=== PATIENT | female | born 1995 | race American Indian/Alaskan Native ===

== ENCOUNTER 2017-01-28 20:59 | Emergency (ER) | payer SELFPAY ==
[2017-01-28 23:29] VITALS: BP 157/115
--- NOTE | 2017-01-30 01:46 | ED Elopement Review ---
ED Pt Elopement review - Call Back decision Pt Call Back Decision: No action required
== END 2017-01-29 00:58 | disposition left against medical advice (07) ==
LOC: ED 20:59
DX: O20.9 Hemorrhage in early pregnancy, unspecified (principal); Z3A.09 9 weeks gestation of pregnancy; Z53.21 Procedure and treatment not carried out due to patient leaving prior to being seen by health care provider

== ENCOUNTER 2017-02-08 08:41 | Emergency (ER) | payer BC ==
[2017-02-08] MEDS ORDERED: NORMODYNE ONE (09:36)
[2017-02-08] MEDS ORDERED: NORMODYNE PO ONE (09:56)
[2017-02-08 10:16] LABS: Basophils % (Auto) 0.9 % (0.0-1.8); Eosinophils % (Auto) 1.3 % (0.0-4.3); Hematocrit 32.4 % (30.3-42.9); Mean Corpuscular HGB Conc 31 % (30-34); Mean Corpuscular Volume 59 fl (79-97); Platelet Count 340 K/mm3 (140-440); Red Blood Count 5.48 M/mm3 (3.65-5.03); Red Cell Distribution Width 17.9 % (13.2-15.2); White Blood Count 11.9 K/mm3 (4.5-11.0)
[2017-02-08 10:17] LABS: Mean Corpuscular Hemoglobin 18 pg (28-32)
[2017-02-08 10:40] LABS: Alanine Aminotransferase 12 units/L (7-56); Albumin 4.1 g/dL (3.9-5); Albumin/Globulin Ratio 1.3 %; Alkaline Phosphatase 59 units/L (35-129); Anion Gap 14 mmol/L; Bilirubin,Total 0.7 mg/dL (0.1-1.2); Blood Urea Nitrogen 11 mg/dL (7-17); Carbon Dioxide 25 mmol/L (22-30); Chloride 102.3 mmol/L (98-107); Glucose 176 mg/dL (65-100); Lipase 21 units/L (13-60); Potassium 4.6 mmol/L (3.6-5.0); Sodium 137 mmol/L (137-145); Total Protein 7.3 g/dL (6.3-8.2)
[2017-02-08 12:47] LABS: Bilirubin,Urine NEG (Negative); Blood,Urine NEG (Negative); Ketones,Urine NEG (Negative); Leukocyte Esterase,Urine NEG (Negative); Mucus,Urine FEW /HPF; Nitrite,Urine NEG (Negative); Protein,Urine <15 mg/dL mg/dL (Negative); Urobilinogen,Urine < 2.0 mg/dL (<2.0); WBC,Urine < 1.0 /HPF (0.0-6.0)
--- NOTE | 2017-02-08 13:06 | Emergency Department Report ---
HPI - General Chief Complaint: Abdominal Pain Time Seen by Provider: 02/08/17 12:48 - HPI HPI: Room 5 The patient is a 21-year-old female presenting with a chief complaint lightheadedness abdominal pain nausea vomiting. Patient states in December she began having nausea vomiting and back pain. Patient complains of pain in "both ovaries" in the suprapubic region. The patient states she had a positive test in November and December. Patient states her last cycle occurred 01/07/2017 with slight vaginal bleeding. Patient states she also had some spotting 01/23/2017. Patient denies abnormal vaginal discharge. Patient denies any history of fever Location: [see above] Duration: [see above] Quality: Lightheadedness Severity: Moderate Modifying factors: [see above] Context: [see above] Mode of transportation: Unknown ED Past Medical Hx - Past Medical History Hx Hypertension: Yes Hx Diabetes: Yes Hx Renal Disease: Yes (2011 Acute kidney failure secondary Lisinopril) Hx Asthma: Yes Hx Dementia: Yes Additional medical history: OBESITY. "myoclonic seizures". thalassemia - Surgical History Past Surgical History?: Yes Additional Surgical History: tonsillectomy and adnoidectomy - Family History Family history: no significant - Social History Smoking Status: Never Smoker Substance Use Type: None - Medications Home Medications: Home Medications Medication Instructions Recorded Confirmed Last Taken Type amLODIPine [Norvasc] 10 mg PO DAILY 04/21/15 04/21/15 3 Months Ago History metFORMIN [Glucophage] 500 mg PO BID 04/21/15 04/21/15 3 Months Ago History ALBUTEROL Inhaler [ProAir HFA 2 puff IH QID PRN #1 inhalation 04/22/15 Unknown Rx Inhaler] Famotidine [Pepcid] 20 mg PO BID #15 tablet 04/22/15 Unknown Rx Ondansetron [Zofran Odt] 4 mg PO Q6H PRN #20 tab.rapdis 04/22/15 Unknown Rx predniSONE [Deltasone] 50 mg PO QDAY #4 tab 04/22/15 Unknown Rx amLODIPine [Norvasc] 5 mg PO DAILY #30 tab 06/09/15 Unknown Rx metFORMIN [Glucophage] 500 mg PO BID #60 tablet 06/09/15 Unknown Rx metroNIDAZOLE [Flagyl TAB] 500 mg PO Q12HR #20 tab 06/09/15 Unknown Rx oxyCODONE /ACETAMINOPHEN [Percocet 1 tab PO Q6HR PRN #15 tablet 06/09/15 Unknown Rx 5/325 mg] Ibuprofen [Motrin 800 MG tab] 800 mg PO Q8HR PRN #20 tablet 02/08/17 Unknown Rx traMADol [Ultram] 50 mg PO Q6HR PRN #10 tablet 02/08/17 Unknown Rx ED Review of Systems ROS: Stated complaint: ABD PAIN Other details as noted in HPI Comment: All other systems reviewed and negative Constitutional: denies: chills, fever Eyes: denies: eye pain, eye discharge, vision change ENT: denies: ear pain, throat pain Respiratory: denies: cough, shortness of breath, wheezing Cardiovascular: denies: chest pain, palpitations Endocrine: no symptoms reported Gastrointestinal: abdominal pain, nausea, vomiting Genitourinary: abnormal menses Musculoskeletal: back pain. denies: joint swelling, arthralgia Skin: denies: rash, lesions Neurological: denies: headache, weakness, paresthesias Psychiatric: denies: anxiety, depression Hematological/Lymphatic: denies: easy bleeding, easy bruising Physical Exam - Physical Exam Vital Signs: Vital Signs 02/08/17 02/08/17 09:23 09:59 Temperature 98.7 F Pulse Rate 65 65 Respiratory 20 Rate Blood Pressure 188/118 188/118 O2 Sat by Pulse 100 Oximetry Physical Exam: GENERAL: The patient is well-developed well-nourished female lying on stretcher not appearing to be in acute distress. [] HEENT: Normocephalic. Atraumatic. Extraocular motions are intact. Patient has moist mucous membranes. NECK: Supple. Trachea midline CHEST/LUNGS: Clear to auscultation. There is no respiratory distress noted. HEART/CARDIOVASCULAR: Regular. There is no tachycardia. There is no gallop rub or murmur. ABDOMEN: Abdomen is soft, nontender. Patient has normal bowel sounds. There is no abdominal distention. SKIN: There is no rash. There is no edema. There is no diaphoresis. NEURO: The patient is awake, alert, and oriented. The patient is cooperative. The patient has normal speech MUSCULOSKELETAL: There is no evidence of acute injury. ED Course Vital Signs 02/08/17 02/08/17 09:23 09:59 Temperature 98.7 F Pulse Rate 65 65 Respiratory 20 Rate Blood Pressure 188/118 188/118 O2 Sat by Pulse 100 Oximetry ED Medical Decision Making - Lab Data Result diagrams: 02/08/17 10:06 02/08/17 10:06 Laboratory Tests 02/08/17 02/08/17 02/08/17 10:06 10:06 10:06 WBC 11.9 H RBC 5.48 H Hgb 10.0 L Hct 32.4 MCV 59 L MCH 18 L MCHC 31 RDW 17.9 H Plt Count 340 Lymph % (Auto) 19.0 Patrick % (Auto) 4.2 Eos % (Auto) 1.3 Baso % (Auto) 0.9 Lymph # 2.3 Patrick # 0.5 Eos # 0.2 Baso # 0.1 Seg Neutrophils % 74.6 H Seg Neutrophils # 8.9 H Sodium 137 Potassium 4.6 Chloride 102.3 Carbon Dioxide 25 Anion Gap 14 BUN 11 Creatinine 0.5 L Estimated GFR > 60 BUN/Creatinine Ratio 22.00 Glucose 176 H Calcium 9.0 Total Bilirubin 0.7 AST 11 ALT 12 Alkaline Phosphatase 59 Total Protein 7.3 Albumin 4.1 Albumin/Globulin Ratio 1.3 Lipase 21 HCG, Quant < 2 Urine Color Urine Turbidity Urine pH Ur Specific [place] Urine Protein Urine Glucose (UA) Urine Ketones Urine Blood Urine Nitrite Urine Bilirubin Urine Urobilinogen Ur Leukocyte Esterase Urine WBC (Auto) Urine RBC (Auto) U Epithel Cells (Auto) Urine Mucus 02/08/17 Unknown WBC RBC Hgb Hct MCV MCH MCHC RDW Plt Count Lymph % (Auto) Patrick % (Auto) Eos % (Auto) Baso % (Auto) Lymph # Patrick # Eos # Baso # Seg Neutrophils % Seg Neutrophils # Sodium Potassium Chloride Carbon Dioxide Anion Gap BUN Creatinine Estimated GFR BUN/Creatinine Ratio Glucose Calcium Total Bilirubin AST ALT Alkaline Phosphatase Total Protein Albumin Albumin/Globulin Ratio Lipase HCG, Quant Urine Color Yellow Urine Turbidity Clear Urine pH 7.0 Ur Specific [place] 1.019 Urine Protein <15 mg/dl Urine Glucose (UA) Neg Urine Ketones Neg Urine Blood Neg Urine Nitrite Neg Urine Bilirubin Neg Urine Urobilinogen < 2.0 Ur Leukocyte Esterase Neg Urine WBC (Auto) < 1.0 Urine RBC (Auto) 1.0 U Epithel Cells (Auto) 1.0 Urine Mucus Few - Radiology Data Radiology results: report reviewed (pelvic ultrasound), image reviewed (pelvic ultrasound) Pelvic ultrasound (read by radiologist)-large right ovarian cyst - Differential Diagnosis ovarian cysts, missed , UTI, Critical care attestation.: If time is entered above; I have spent that time in minutes in the direct care of this critically ill patient, excluding procedure time. ED Disposition Clinical Impression: Ovarian cyst, right Disposition: DISCHARGED TO HOME OR SELFCARE Is pt being admited?: No Does the pt Need Aspirin: No Condition: Stable Instructions: Abdominal Pain (ED), Ovarian Cyst (ED) Additional Instructions: Return to the emergency department immediately should you develop worsening symptoms, fever, inability to tolerate food or liquid or any other concerns. Prescriptions: Ibuprofen [Motrin 800 MG tab] 800 mg PO Q8HR PRN #20 tablet PRN Reason: Pain traMADol [Ultram] 50 mg PO Q6HR PRN #10 tablet PRN Reason: Pain Referrals: [facility] [Provider Group] - 3-5 Days Time of Disposition: 17:43
--- NOTE | 2017-02-08 15:55 | Ultrasound Report ---
Pelvic ultrasound: Endovaginal and transabdominal imaging demonstrates an anteverted uterus measuring 3.6 x 6.0 x 7.7 cm. The myometrium is homogeneous. The endometrium is homogeneous with a diameter of 12.1 mm. No fluid present. The left ovary measures 2.9 cm. There is a normal flow pattern with Doppler imaging. The right ovary measures 6.1 cm containing a 5.3 cm slightly complex cyst. There is normal Doppler flow to the solid-appearing marginal tissue. Minimal free fluid noted. Impression: Large right ovarian cyst.
[2017-02-08] MEDS ORDERED: ULTRAM PO ONE (17:48)
[2017-02-08 18:14] VITALS: BP 118/68
== END 2017-02-08 18:14 | disposition home or self-care (01) ==
LOC: ED 08:41
DX: N83.201 Unspecified ovarian cyst, right side (principal); I10 Essential (primary) hypertension; E11.9 Type 2 diabetes mellitus without complications; J45.909 Unspecified asthma, uncomplicated; F03.90 Unspecified dementia, unspecified severity, without behavioral disturbance, psychotic disturbance, mood disturbance, and anxiety; Z90.89 Acquired absence of other organs
CPT/HCPCS: 36415; 76830; 76856; 80053; 81001; 83690; 84702; 85025

== ENCOUNTER 2017-05-09 11:35 | Emergency (ER) | payer BC ==
[2017-05-09 13:36] LABS: Bacteria,Urine 1+ /HPF (Negative); Bilirubin,Urine NEG (Negative); Blood,Urine NEG (Negative); Ketones,Urine NEG (Negative); Leukocyte Esterase,Urine NEG (Negative); Mucus,Urine FEW /HPF; Nitrite,Urine NEG (Negative); Protein,Urine <15 mg/dL mg/dL (Negative); Urobilinogen,Urine < 2.0 mg/dL (<2.0)
[2017-05-09] MEDS ORDERED: TORADOL IM ONE (15:20)
--- NOTE | 2017-05-09 15:26 | Emergency Department Report ---
ED Back Pain/Injury HPI - General Chief Complaint: Back Pain/Injury Stated Complaint: ABD PAIN Time Seen by Provider: 05/09/17 15:10 Source: patient Limitations: No Limitations - History of Present Illness MD Complaint: back pain Onset/Timin -: Sudden, days(s) Similar Symptoms Previously: Yes Place: home Radiation: none Severity: moderate Severity scale (0 -10): 4 Quality: aching Consistency: intermittent Improves With: none Worsens With: movement, other (bending and twisting ) Context: turning/twisting, bending (I woke up with low back pain radiating to my bladder ), other - Related Data Home Medications Medication Instructions Recorded Confirmed Last Taken metFORMIN [Glucophage] 500 mg PO BID 04/21/15 04/21/15 3 Months Ago Previous Rx's Medication Instructions Recorded Last Taken Type ALBUTEROL Inhaler [ProAir HFA 2 puff IH QID PRN #1 inhalation 04/22/15 Unknown Rx Inhaler] Famotidine [Pepcid] 20 mg PO BID #15 tablet 04/22/15 Unknown Rx Ondansetron [Zofran Odt] 4 mg PO Q6H PRN #20 tab.rapdis 04/22/15 Unknown Rx predniSONE [Deltasone] 50 mg PO QDAY #4 tab 04/22/15 Unknown Rx amLODIPine [Norvasc] 5 mg PO DAILY #30 tab 06/09/15 Unknown Rx metFORMIN [Glucophage] 500 mg PO BID #60 tablet 06/09/15 Unknown Rx metroNIDAZOLE [Flagyl TAB] 500 mg PO Q12HR #20 tab 06/09/15 Unknown Rx oxyCODONE /ACETAMINOPHEN [Percocet 1 tab PO Q6HR PRN #15 tablet 06/09/15 Unknown Rx 5/325 mg] Ibuprofen [Motrin 800 MG tab] 800 mg PO Q8HR PRN #20 tablet 02/08/17 Unknown Rx amLODIPine [Norvasc] 10 mg PO DAILY #30 tablet 02/08/17 Unknown Rx traMADol [Ultram] 50 mg PO Q6HR PRN #10 tablet 02/08/17 Unknown Rx Cyclobenzaprine [Flexeril] 10 mg PO TID PRN #30 tablet 05/09/17 Unknown Rx Naproxen [Naprosyn TAB] 500 mg PO BID PRN #60 tablet 05/09/17 Unknown Rx Nitrofurantoin [place]/M-Cryst 100 mg PO Q12HR #14 capsule 05/09/17 Unknown Rx [Macrobid CAP] Allergies Allergy/AdvReac Type Severity Reaction Status Date / Time lisinopril Allergy Vomiting Verified 02/08/17 09:33 ED Review of Systems ROS: Stated complaint: ABD PAIN Other details as noted in HPI Constitutional: denies: chills, fever Eyes: denies: eye pain, eye discharge, vision change ENT: denies: ear pain, throat pain Respiratory: denies: cough, shortness of breath, wheezing Cardiovascular: denies: chest pain, palpitations Endocrine: no symptoms reported Gastrointestinal: denies: abdominal pain, nausea, diarrhea Genitourinary: urgency, frequency. denies: discharge, abnormal menses, dyspareunia Musculoskeletal: back pain Skin: denies: rash, lesions Neurological: denies: headache, weakness, paresthesias Psychiatric: denies: anxiety, depression ED Past Medical Hx - Past Medical History Previous Medical History?: Yes Hx Hypertension: Yes Hx Diabetes: Yes Hx Renal Disease: Yes (2011 Acute kidney failure secondary Lisinopril) Hx Asthma: Yes Hx Dementia: Yes Additional medical history: OBESITY. "myoclonic seizures". thalassemia - Surgical History Past Surgical History?: Yes Additional Surgical History: tonsillectomy and adnoidectomy - Social History Smoking Status: Never Smoker Substance Use Type: None - Medications Home Medications: Home Medications Medication Instructions Recorded Confirmed Last Taken Type metFORMIN [Glucophage] 500 mg PO BID 04/21/15 04/21/15 3 Months Ago History ALBUTEROL Inhaler [ProAir HFA 2 puff IH QID PRN #1 inhalation 04/22/15 Unknown Rx Inhaler] Famotidine [Pepcid] 20 mg PO BID #15 tablet 04/22/15 Unknown Rx Ondansetron [Zofran Odt] 4 mg PO Q6H PRN #20 tab.rapdis 04/22/15 Unknown Rx predniSONE [Deltasone] 50 mg PO QDAY #4 tab 04/22/15 Unknown Rx amLODIPine [Norvasc] 5 mg PO DAILY #30 tab 06/09/15 Unknown Rx metFORMIN [Glucophage] 500 mg PO BID #60 tablet 06/09/15 Unknown Rx metroNIDAZOLE [Flagyl TAB] 500 mg PO Q12HR #20 tab 07/23/15 Unknown Rx oxyCODONE /ACETAMINOPHEN [Percocet 1 tab PO Q6HR PRN #15 tablet 06/09/15 Unknown Rx 5/325 mg] Ibuprofen [Motrin 800 MG tab] 800 mg PO Q8HR PRN #20 tablet 02/08/17 Unknown Rx amLODIPine [Norvasc] 10 mg PO DAILY #30 tablet 02/08/17 Unknown Rx traMADol [Ultram] 50 mg PO Q6HR PRN #10 tablet 02/08/17 Unknown Rx Cyclobenzaprine [Flexeril] 10 mg PO TID PRN #30 tablet 05/09/17 Unknown Rx Naproxen [Naprosyn TAB] 500 mg PO BID PRN #60 tablet 05/09/17 Unknown Rx Nitrofurantoin [place]/M-Cryst 100 mg PO Q12HR #14 capsule 05/09/17 Unknown Rx [Macrobid CAP] ED Physical Exam - General Limitations: No Limitations General appearance: alert, in no apparent distress - Head Head exam: Present: atraumatic, normocephalic - Eye Eye exam: Present: normal appearance - ENT ENT exam: Present: mucous membranes moist - Neck Neck exam: Present: normal inspection - Respiratory Respiratory exam: Present: normal lung sounds bilaterally. Absent: respiratory distress - Cardiovascular Cardiovascular Exam: Present: regular rate, normal rhythm. Absent: systolic murmur, diastolic murmur, rubs, gallop - GI/Abdominal GI/Abdominal exam: Present: soft, normal bowel sounds. Absent: distended, tenderness, guarding, rebound, rigid, bruit, hernia - Rectal Rectal exam: Present: deferred - External exam: Present: other (exam deferred per patient ) - Extremities Exam Extremities exam: Present: normal inspection - Back Exam Back exam: Present: normal inspection, tenderness, muscle spasm. Absent: CVA tenderness (R), CVA tenderness (L), paraspinal tenderness, vertebral tenderness , rash noted - Expanded Back Exam Expanded Back exam: Present: intact bulbocavernosus reflex. Absent: saddle anesthesia Back exam: Negative Straight Leg Raising: Left, Right (no posterior vertebral point tenderness no parspinus muscle tenderness ) - Neurological Exam Neurological exam: Present: alert, oriented X3, CN II-XII intact, normal gait, reflexes normal. Absent: motor sensory deficit - Psychiatric Psychiatric exam: Present: normal affect, normal mood - Skin Skin exam: Present: warm, dry, intact, normal color. Absent: rash ED Course Vital Signs 05/09/17 12:30 Temperature 98.6 F Pulse Rate 94 H Respiratory 18 Rate O2 Sat by Pulse 100 Oximetry ED Medical Decision Making - Lab Data Laboratory Tests 05/09/17 12:58 Urine Color Yellow Urine Turbidity Clear Urine pH 6.0 Ur Specific [place] 1.024 Urine Protein <15 mg/dl Urine Glucose (UA) Neg Urine Ketones Neg Urine Blood Neg Urine Nitrite Neg Ur Reducing Substances Not Reportable Urine Bilirubin Neg Urine Ictotest Not Reportable Urine Urobilinogen < 2.0 Ur Leukocyte Esterase Neg Urine WBC (Auto) 1.0 Urine RBC (Auto) 1.0 U Epithel Cells (Auto) 3.0 Urine Bacteria (Auto) 1+ Urine Mucus Few Urine HCG, Qual Negative - Medical Decision Making pt is a 22 y/o aaf with hx of htn who presents for right flank and low back pain radiating to super pubic region x this am pt denies vaginal discharge LMP 3 weeks ago, noted urinary urgency and frequency for past 2 days, last sexual contact 1 months ago , there is no pelvic pain no vaginal bleeding no hx of fibroids or ovarian cyst no n/v , back pain described as 5/10 aching spasm, no posterior vertebral point tenderness no paraspinus muscle tenderness , negative straight leg, no numbness no tingling no paresthesia no loss or decrease in bowel or bladder function. ua noted for wbc,mucus, bacteria, will treat for uti , nsaids and muscle relaxant for back pain , Critical care attestation.: If time is entered above; I have spent that time in minutes in the direct care of this critically ill patient, excluding procedure time. ED Disposition Clinical Impression: UTI (urinary tract infection) Qualifiers: Urinary tract infection type: acute cystitis Low back strain Qualifiers: Encounter type: initial encounter Qualified Code(s): S39.012A - Strain of muscle, fascia and tendon of lower back, initial encounter Disposition: TO HOME OR SELFCARE Is pt being admited?: No Does the pt Need Aspirin: No Condition: Good Instructions: Urinary Tract Infection in Women (ED), Low Back Strain (ED) Prescriptions: Cyclobenzaprine [Flexeril] 10 mg PO TID PRN #30 tablet PRN Reason: Muscle Spasm Naproxen [Naprosyn TAB] 500 mg PO BID PRN #60 tablet PRN Reason: Pain Nitrofurantoin [place]/M-Cryst [Macrobid CAP] 100 mg PO Q12HR #14 capsule Referrals: [facility], [Primary Care Provider] - 3-5 Days Forms: Work/School Release Form(ED) Time of Disposition: 15:33
[2017-05-09 16:09] VITALS: BP 123/78
== END 2017-05-09 16:18 | disposition home or self-care (01) ==
LOC: ED 11:35
DX: S39.012A Strain of muscle, fascia and tendon of lower back, initial encounter (principal); N30.00 Acute cystitis without hematuria; I10 Essential (primary) hypertension; E11.9 Type 2 diabetes mellitus without complications; J45.909 Unspecified asthma, uncomplicated; N17.9 Acute kidney failure, unspecified; F03.90 Unspecified dementia, unspecified severity, without behavioral disturbance, psychotic disturbance, mood disturbance, and anxiety; Z88.8 Allergy status to other drugs, medicaments and biological substances; X50.1XXA Overexertion from prolonged static or awkward postures, initial encounter; Y93.89 Activity, other specified; Y99.8 Other external cause status; Y92.89 Other specified places as the place of occurrence of the external cause
CPT/HCPCS: 81001; 81025; 96372; 99283; J1885

== ENCOUNTER 2018-04-07 17:07 | Emergency (ER) | payer BC, MEDICAID ==
[2018-04-07 17:20] VITALS: BP 177/92
[2018-04-07 17:55] LABS: Basophils # (Auto) 0.1 K/mm3 (0.0-0.1); Basophils % (Auto) 0.9 % (0.0-1.8); Eosinophils # (Auto) 0.5 K/mm3 (0.0-0.4); Eosinophils % (Auto) 4.2 % (0.0-4.3); Hematocrit 29.8 % (30.3-42.9); Hemoglobin 9.6 gm/dl (10.1-14.3); Lymphocytes # (Auto) 2.5 K/mm3 (1.2-5.4); Lymphocytes % (Auto) 20.1 % (13.4-35.0); Mean Corpuscular HGB Conc 32 % (30-34); Monocytes # (Auto) 0.6 K/mm3 (0.0-0.8); Monocytes % (Auto) 5.2 % (0.0-7.3); Platelet Count 315 K/mm3 (140-440); Red Blood Count 4.89 M/mm3 (3.65-5.03); Red Cell Distribution Width 16.8 % (13.2-15.2)
[2018-04-07 18:07] LABS: Mean Corpuscular Hemoglobin 20 pg (28-32); Mean Corpuscular Volume 61 fl (79-97)
[2018-04-07 18:15] LABS: BUN/Creatinine Ratio 14; Blood Urea Nitrogen 7 mg/dL (7-17); Calcium 8.9 mg/dL (8.4-10.2); Hemolysis Index 3
[2018-04-07 21:32] LABS: Bacteria,Urine 1+ /HPF (Negative); Bilirubin,Urine NEG (Negative); Blood,Urine NEG (Negative); Color,Urine Yellow (Yellow); Mucus,Urine 1+ /HPF; Protein,Urine <15 mg/dL mg/dL (Negative); Urobilinogen,Urine < 2.0 mg/dL (<2.0)
== END 2018-04-07 20:00 | disposition left against medical advice (07) ==
LOC: ED 17:07
DX: R22.0 Localized swelling, mass and lump, head (principal); Z53.21 Procedure and treatment not carried out due to patient leaving prior to being seen by health care provider
CPT/HCPCS: 36415; 80048; 81001; 85025

== ENCOUNTER 2018-05-05 00:12 | Outpatient (CLI) | payer MEDICAID ==
[2018-05-05] MEDS ORDERED: LACTATED RINGERS 1,000 ML IV ONE (00:53)
[2018-05-05 01:51] LABS: Bilirubin,Urine NEG (Negative); Color,Urine Yellow (Yellow)
[2018-05-05 01:52] LABS: Blood,Urine NEG (Negative); Mucus,Urine FEW /HPF; Protein,Urine <15 mg/dL mg/dL (Negative); Urobilinogen,Urine < 2.0 mg/dL (<2.0); WBC,Urine < 1.0 /HPF (0.0-6.0)
[2018-05-05 02:16] VITALS: BP 123/67
== END 2018-05-05 02:43 | disposition home or self-care (01) ==
LOC: TRG 00:12
PROVIDERS: ATTEND Obstetrics & Gynecology
DX: O26.893 Other specified pregnancy related conditions, third trimester (principal); O42.912 Preterm premature rupture of membranes, unspecified as to length of time between rupture and onset of labor, second trimester; Z3A.23 23 weeks gestation of pregnancy
CPT/HCPCS: 59025; 81001; 96360; J7120

== ENCOUNTER 2018-06-02 11:58 | Outpatient (CLI) | payer MEDICAID | END 2018-06-02 11:59 | disposition home or self-care (01) | LOC: CARD 11:58 | PROVIDERS: ATTEND Obstetrics & Gynecology | DX: O24.112 Pre-existing type 2 diabetes mellitus, in pregnancy, second trimester (principal); O10.012 Pre-existing essential hypertension complicating pregnancy, second trimester; Z3A.25 25 weeks gestation of pregnancy | CPT/HCPCS: 93005; 93010 ==

== ENCOUNTER 2019-04-30 03:50 | Inpatient (IN) | payer SELFPAY ==
[2019-04-30 04:52] LABS: Basophils # (Auto) 0.1 K/mm3 (0.0-0.1); Basophils % (Auto) 0.9 % (0.0-1.8); Eosinophils # (Auto) 0.4 K/mm3 (0.0-0.4); Eosinophils % (Auto) 2.6 % (0.0-4.3); Hematocrit 34.4 % (30.3-42.9); Hemoglobin 11.1 gm/dl (10.1-14.3); Lymphocytes # (Auto) 2.8 K/mm3 (1.2-5.4); Mean Corpuscular HGB Conc 32 % (30-34); Monocytes # (Auto) 0.8 K/mm3 (0.0-0.8); Monocytes % (Auto) 5.8 % (0.0-7.3); Platelet Count 302 K/mm3 (140-440); Red Blood Count 5.66 M/mm3 (3.65-5.03); Red Cell Distribution Width 17.8 % (13.2-15.2)
[2019-04-30 05:23] LABS: BUN/Creatinine Ratio 22; Blood Urea Nitrogen 13 mg/dL (7-17); Calcium 9.7 mg/dL (8.4-10.2); Hemolysis Index 17
[2019-04-30 05:38] LABS: Bilirubin,Urine NEG (Negative); Blood,Urine NEG (Negative); Color,Urine Straw (Yellow); Protein,Urine <15 mg/dL mg/dL (Negative); Urobilinogen,Urine < 2.0 mg/dL (<2.0)
[2019-04-30 05:44] LABS: HCG Qualitative,Urine Negative (Negative); WBC,Urine < 1.0 /HPF (0.0-6.0)
[2019-04-30 05:48] LABS: Mean Corpuscular Volume 61 fl (79-97)
[2019-04-30] MEDS ORDERED: NACL 0.9% 500 ML 500 ML IV ONE (07:08)
[2019-04-30] MEDS ORDERED: ZOSYN/NS 4.5GM/100ML 4.5 GM/100 ML VIAL IV ONE (07:10)
[2019-04-30] MEDS ORDERED: HumuLIN R IV ONE (07:10)
[2019-04-30] MEDS ORDERED: VANCOMYCIN PHARMACY TO DOSE IV SCH (08:00)
[2019-04-30 08:01] LABS: Bilirubin,Urine NEG (Negative); Blood,Urine NEG (Negative); Color,Urine Yellow (Yellow); Protein,Urine <15 mg/dL mg/dL (Negative); Urobilinogen,Urine < 2.0 mg/dL (<2.0); WBC,Urine < 1.0 /HPF (0.0-6.0)
[2019-04-30 08:13] LABS: INR 1.01 (0.87-1.13)
[2019-04-30 08:14] LABS: Partial Thromboplastin Time 24.2 Sec. (24.2-36.6)
[2019-04-30 08:23] LABS: Alanine Aminotransferase 29 units/L (7-56)
--- NOTE | 2019-04-30 08:23 | XRay Report ---
AP CHEST: HISTORY: Sepsis AP view of the chest demonstrates a normal mediastinal and cardiac contour with clear lungs and normal bony and soft tissue structures. IMPRESSION: Unremarkable AP chest.
[2019-04-30 08:27] LABS: Bilirubin,Direct < 0.2 mg/dL (0-0.2)
[2019-04-30] MEDS ORDERED: VANCOMYCIN 2,000 MG in NACL 0.9% 500 ML 500 ML IV ONE (08:30)
[2019-04-30] MEDS ORDERED: NACL 0.9% IV ONE (09:00)
[2019-04-30] MEDS ORDERED: VANCOMYCIN IV ONE (09:00)
[2019-04-30] MEDS ORDERED: TYLENOL PO PRN (10:15)
[2019-04-30] MEDS ORDERED: ZOFRAN IV PRN (10:15)
[2019-04-30] MEDS ORDERED: SODIUM CHLORIDE FLUSH SYRINGE 10 ML IV PRN (10:15)
--- NOTE | 2019-04-30 11:26 | History and Physical Report ---
History of Present Illness Date of examination: 04/30/19 Date of admission: 04/30/19 Chief complaint: vaginal pain History of present illness: This is a 24-year-old morbidly obese female with past medical history of diabetes mellitus and hypertension who presents with chief complaint of vaginal pain. Patient reports noticing a boil on her vagina labia approximately 3 days ago. Patient denies any fever or chills. Patient reports nausea but no vomiting. Patient also reports diarrhea over the past 3 days that has been constant. No melena or hematochezia. She denies any vaginal discharge. No headache or visual disturbances. No cough or cold-like symptoms. Past History Past Medical History: diabetes, hypertension Past Surgical History: No surgical history Social history: no significant social history Family history: no significant family history Medications and Allergies Allergies Allergy/AdvReac Type Severity Reaction Status Date / Time lisinopril Allergy Vomiting Verified 02/08/17 09:33 Home Medications Medication Instructions Recorded Confirmed Last Taken Type metFORMIN [Glucophage] 500 mg PO BID #60 tablet 06/09/15 04/30/19 Unknown Rx Labetalol [Labetalol 100mg TAB] 100 mg PO BID 04/30/19 04/30/19 Unknown History glipiZIDE XL [Glucotrol Xl] 10 mg PO QDAY 04/30/19 04/30/19 Unknown History Active Meds: Active Medications Acetaminophen (Tylenol) 650 mg PO Q4H PRN PRN Reason: Pain MILD(1-3)/Fever >100.5/[place] Acetaminophen/Hydrocodone Bitart ([place] 5/325) 2 each PO Q6H PRN PRN Reason: Pain, Moderate (4-6) Enoxaparin Sodium (Lovenox) 40 mg SUB-Q QDAY TOMMIE Sodium Chloride (Nacl 0.9% 1000 Ml) 1,000 mls @ 75 mls/hr IV DIRECT TOMMIE Piperacillin Sod/Tazobactam Sod (Zosyn/Ns 4.5gm/100ml) 4.5 gm in 100 mls @ 200 mls/hr IV Q8HR TOMMIE; Protocol Ondansetron HCl (Zofran) 4 mg IV Q8H PRN PRN Reason: Nausea And Vomiting Sodium Chloride (Sodium Chloride Flush Syringe 10 Ml) 10 ml IV BID TOMMIE Sodium Chloride (Sodium Chloride Flush Syringe 10 Ml) 10 ml IV PRN PRN PRN Reason: LINE FLUSH Stop: 05/15/19 10:14 Review of Systems All systems: negative Exam - Constitutional Vitals: Temp Pulse Resp BP Pulse Ox 98.6 F 125 H 19 155/99 100 04/30/19 03:56 04/30/19 03:56 04/30/19 07:54 04/30/19 03:56 04/30/19 07:54 General appearance: Present: no acute distress, well-nourished - EENT Eyes: Present: PERRL ENT: hearing intact, clear oral mucosa - Neck Neck: Present: supple, normal ROM - Respiratory Respiratory effort: normal Respiratory: bilateral: CTA - Cardiovascular Heart Sounds: Present: S1 & S2. Absent: rub, click - Extremities Extremities: pulses symmetrical, No edema Peripheral Pulses: within normal limits - Abdominal General gastrointestinal: Present: soft, non-tender, non-distended, normal bowel sounds Female genitourinary: Present: other (left labial golf ball sized abscess with erythema and tenderness to palpation) - Integumentary Integumentary: Present: clear, warm, dry - Musculoskeletal Musculoskeletal: gait normal, strength equal bilaterally - Psychiatric Psychiatric: appropriate mood/affect, intact judgment & insight - Neurologic Neurologic: CNII-XII intact, moves all extremities Results - Labs CBC & Chem 7: 04/30/19 04:18 04/30/19 04:18 Labs: Laboratory Last Values WBC 13.8 K/mm3 (4.5-11.0) H 04/30/19 04:18 RBC 5.66 M/mm3 (3.65-5.03) H 04/30/19 04:18 Hgb 11.1 gm/dl (10.1-14.3) 04/30/19 04:18 Hct 34.4 % (30.3-42.9) 04/30/19 04:18 MCV 61 fl (79-97) L 04/30/19 04:18 MCH 20 pg (28-32) L 04/30/19 04:18 MCHC 32 % (30-34) 04/30/19 04:18 RDW 17.8 % (13.2-15.2) H 04/30/19 04:18 Plt Count 302 K/mm3 (140-440) 04/30/19 04:18 Lymph % (Auto) 20.0 % (13.4-35.0) 04/30/19 04:18 [place] % (Auto) 5.8 % (0.0-7.3) 04/30/19 04:18 Eos % (Auto) 2.6 % (0.0-4.3) 04/30/19 04:18 Baso % (Auto) 0.9 % (0.0-1.8) 04/30/19 04:18 Lymph # 2.8 K/mm3 (1.2-5.4) 04/30/19 04:18 [place] # 0.8 K/mm3 (0.0-0.8) 04/30/19 04:18 Eos # 0.4 K/mm3 (0.0-0.4) 04/30/19 04:18 Baso # 0.1 K/mm3 (0.0-0.1) 04/30/19 04:18 Seg Neutrophils % 70.7 % (40.0-70.0) H 04/30/19 04:18 Seg Neutrophils # 9.8 K/mm3 (1.8-7.7) H 04/30/19 04:18 PT 13.9 Sec. (12.2-14.9) 04/30/19 07:40 INR 1.01 (0.87-1.13) 04/30/19 07:40 APTT 24.2 Sec. (24.2-36.6) 04/30/19 07:40 VBG pH 7.320 (7.320-7.420) 04/30/19 07:40 Sodium 134 mmol/L (137-145) L 04/30/19 04:18 Potassium 4.6 mmol/L (3.6-5.0) 04/30/19 04:18 Chloride 95.8 mmol/L (98-107) L 04/30/19 04:18 Carbon Dioxide 24 mmol/L (22-30) 04/30/19 04:18 19 mmol/L 04/30/19 04:18 BUN 13 mg/dL (7-17) 04/30/19 04:18 0.6 mg/dL (0.7-1.2) L 04/30/19 04:18 Estimated GFR > 60 ml/min 04/30/19 04:18 22 % 04/30/19 04:18 Glucose 399 mg/dL (65-100) H 04/30/19 04:18 POC Glucose 342 (70-105) H 04/30/19 04:03 Negative (Negative) 04/30/19 07:40 Lactic Acid 2.80 mmol/L (0.7-2.0) H* 04/30/19 07:40 Calcium 9.7 mg/dL (8.4-10.2) 04/30/19 04:18 Magnesium 1.40 mg/dL (1.7-2.3) L 04/30/19 07:40 0.60 mg/dL (0.1-1.2) 04/30/19 07:40 < 0.2 mg/dL (0-0.2) 04/30/19 07:40 AST 24 units/L (5-40) 04/30/19 07:40 ALT 29 units/L (7-56) 04/30/19 07:40 68 units/L (35-129) 04/30/19 07:40 NT-Pro-B Natriuret Pep < 5 pg/mL (0-450) 04/30/19 07:40 7.6 g/dL (6.3-8.2) 04/30/19 07:40 4.0 g/dL (3.9-5) 04/30/19 07:40 1.1 % 04/30/19 07:40 Yellow (Yellow) 04/30/19 07:54 Clear (Clear) 04/30/19 07:54 6.0 (5.0-7.0) 04/30/19 07:54 Ur Specific [place] 1.036 (1.003-1.030) H 04/30/19 07:54 <15 mg/dl mg/dL (Negative) 04/30/19 07:54 >=500 mg/dL (Negative) 04/30/19 07:54 Neg mg/dL (Negative) 04/30/19 07:54 Neg (Negative) 04/30/19 07:54 Neg (Negative) 04/30/19 07:54 Neg (Negative) 04/30/19 07:54 < 2.0 mg/dL (<2.0) 04/30/19 07:54 Ur Leukocyte Esterase Neg (Negative) 04/30/19 07:54 < 1.0 /HPF (0.0-6.0) 04/30/19 07:54 1.0 /HPF (0.0-6.0) 04/30/19 07:54 U Epithel Cells (Auto) 1.0 /HPF (0-13.0) 04/30/19 04:00 Urine HCG, Qual Negative (Negative) 04/30/19 04:00 Assessment and Plan Assessment and plan: Sepsis. Patient will be placed on the sepsis pathway and treated with IV antibiotics. Continue to monitor lactic acid levels. Follow-up blood cultures. Labial abscess. Consult surgery for further evaluation. Continue IV antibiotics of vancomycin and Zosyn. Diabetes mellitus. Accu-Cheks and sliding scale insulin. Hypertension. Continue labetalol.
[2019-04-30] MEDS ORDERED: D50W (25GM) Syringe IV PRN (11:27)
--- NOTE | 2019-04-30 12:03 | Emergency Department Report ---
ED Female HPI - General Chief complaint: Skin/Abscess/Foreign Body Stated complaint: BOIL Time Seen by Provider: 04/30/19 07:07 Source: patient Mode of arrival: Ambulatory Limitations: No Limitations - History of Present Illness Initial comments: 24-year-old female presents for evaluation of an apparent labial abscess. Patient states that she noted this a few days ago. She states that she has never been treated for diabetes. However I do note that metformin listed as a medication that she has been previously prescribed in 2015 at 2016. She does not report fever or chills. She denies vaginal discharge. She was noted to have a heart rate 125 at triage. MD Complaint: other -: Gradual, week(s) Location: labia Severity: moderate Quality: dull Consistency: intermittent Improves with: none Worsens with: none - Related Data Home Medications Medication Instructions Recorded Confirmed Last Taken Labetalol [Labetalol 100mg TAB] 100 mg PO BID 04/30/19 04/30/19 Unknown glipiZIDE XL [Glucotrol Xl] 10 mg PO QDAY 04/30/19 04/30/19 Unknown Previous Rx's Medication Instructions Recorded Last Taken Type metFORMIN [Glucophage] 500 mg PO BID #60 tablet 06/09/15 Unknown Rx Allergies Allergy/AdvReac Type Severity Reaction Status Date / Time lisinopril Allergy Vomiting Verified 02/08/17 09:33 ED Review of Systems ROS: Stated complaint: BOIL Other details as noted in HPI Constitutional: denies: chills, fever Eyes: denies: eye pain, eye discharge, vision change ENT: denies: ear pain, throat pain Respiratory: denies: cough, shortness of breath, wheezing Cardiovascular: denies: chest pain, palpitations Endocrine: no symptoms reported Gastrointestinal: denies: abdominal pain, nausea, diarrhea Genitourinary: frequency. denies: urgency, dysuria, discharge Musculoskeletal: denies: back pain, joint swelling, arthralgia Skin: denies: rash, lesions Neurological: denies: headache, weakness, paresthesias Psychiatric: denies: anxiety, depression Hematological/Lymphatic: denies: easy bleeding, easy bruising ED Past Medical Hx - Past Medical History Previous Medical History?: Yes Hx Hypertension: Yes Hx Diabetes: Yes Hx Deep Vein Thrombosis: No Hx Renal Disease: No Hx Sickle Cell Disease: No Hx Seizures: Yes (as child) Hx Asthma: Yes Hx Dementia: Yes Hx HIV: No Additional medical history: OBESITY. "myoclonic seizures". thalassemia - Surgical History Past Surgical History?: Yes Additional Surgical History: tonsillectomy and adenoidectomy. - Social History Smoking Status: Never Smoker Substance Use Type: None - Medications Home Medications: Home Medications Medication Instructions Recorded Confirmed Last Taken Type metFORMIN [Glucophage] 500 mg PO BID #60 tablet 06/09/15 04/30/19 Unknown Rx Labetalol [Labetalol 100mg TAB] 100 mg PO BID 04/30/19 04/30/19 Unknown History glipiZIDE XL [Glucotrol Xl] 10 mg PO QDAY 04/30/19 04/30/19 Unknown History ED Physical Exam - General Limitations: No Limitations General appearance: alert, in no apparent distress - Head Head exam: Present: atraumatic, normocephalic - Eye Eye exam: Present: normal appearance. Absent: scleral icterus - ENT ENT exam: Present: mucous membranes moist - Neck Neck exam: Present: normal inspection - Respiratory Respiratory exam: Present: normal lung sounds bilaterally. Absent: respiratory distress - Cardiovascular Cardiovascular Exam: Present: regular rate, normal rhythm. Absent: systolic murmur, diastolic murmur, rubs, gallop - GI/Abdominal GI/Abdominal exam: Present: soft, normal bowel sounds. Absent: distended, tenderness, guarding, rebound, rigid - External exam: Present: other (labial abscess. No drainage. No necrotic tissue.) - Extremities Exam Extremities exam: Present: normal inspection - Back Exam Back exam: Present: normal inspection - Neurological Exam Neurological exam: Present: alert, oriented X3 - Psychiatric Psychiatric exam: Present: normal affect, normal mood - Skin Skin exam: Present: warm, dry, intact, normal color. Absent: rash ED Course Vital Signs 04/30/19 04/30/19 03:56 07:54 Temperature 98.6 F Pulse Rate 125 H Respiratory 20 19 Rate Blood Pressure 155/99 [Right] O2 Sat by Pulse 99 100 Oximetry - Reevaluation(s) Reevaluation #1: I and D is deferred to [facility] or surgery. The emergency department had a massive s urge this morning. Hospitalist informed. Antibiotics begun. Patient given insulin. 04/30/19 12:05 ED Medical Decision Making - Lab Data Result diagrams: 04/30/19 04:18 04/30/19 04:18 Laboratory Results - last 24 hr 04/30/19 04/30/19 04/30/19 04:00 04:03 04:18 WBC 13.8 H RBC 5.66 H Hgb 11.1 Hct 34.4 MCV 61 L MCH 20 L MCHC 32 RDW 17.8 H Plt Count 302 Lymph % (Auto) 20.0 [place] % (Auto) 5.8 Eos % (Auto) 2.6 Baso % (Auto) 0.9 Lymph # 2.8 [place] # 0.8 Eos # 0.4 Baso # 0.1 Seg Neutrophils % 70.7 H Seg Neutrophils # 9.8 H PT INR APTT VBG pH Sodium Potassium Chloride Carbon Dioxide Anion Gap BUN Creatinine Estimated GFR BUN/Creatinine Ratio Glucose POC Glucose 342 H Ketones Quantitative Lactic Acid Calcium Magnesium Total Bilirubin Direct Bilirubin AST ALT Alkaline Phosphatase NT-Pro-B Natriuret Pep Total Protein Albumin Albumin/Globulin Ratio Urine Color Straw Urine Turbidity Clear Urine pH 7.0 Ur Specific [place] 1.032 H Urine Protein <15 mg/dl Urine Glucose (UA) >=500 Urine Ketones Neg Urine Blood Neg Urine Nitrite Neg Urine Bilirubin Neg Urine Urobilinogen < 2.0 Ur Leukocyte Esterase Neg Urine WBC (Auto) < 1.0 Urine RBC (Auto) 1.0 U Epithel Cells (Auto) 1.0 Urine HCG, Qual Negative 04/30/19 04/30/19 04/30/19 04:18 04:18 07:40 WBC RBC Hgb Hct MCV MCH MCHC RDW Plt Count Lymph % (Auto) [place] % (Auto) Eos % (Auto) Baso % (Auto) Lymph # [place] # Eos # Baso # Seg Neutrophils % Seg Neutrophils # PT 13.9 INR 1.01 APTT 24.2 VBG pH 7.330 Sodium 134 L Potassium 4.6 Chloride 95.8 L Carbon Dioxide 24 Anion Gap 19 BUN 13 Creatinine 0.6 L Estimated GFR > 60 BUN/Creatinine Ratio 22 Glucose 399 H POC Glucose Ketones Quantitative Lactic Acid Calcium 9.7 Magnesium Total Bilirubin Direct Bilirubin AST ALT Alkaline Phosphatase NT-Pro-B Natriuret Pep Total Protein Albumin Albumin/Globulin Ratio Urine Color Urine Turbidity Urine pH Ur Specific [place] Urine Protein Urine Glucose (UA) Urine Ketones Urine Blood Urine Nitrite Urine Bilirubin Urine Urobilinogen Ur Leukocyte Esterase Urine WBC (Auto) Urine RBC (Auto) U Epithel Cells (Auto) Urine HCG, Qual 04/30/19 04/30/19 04/30/19 07:40 07:40 07:40 WBC RBC Hgb Hct MCV MCH MCHC RDW Plt Count Lymph % (Auto) [place] % (Auto) Eos % (Auto) Baso % (Auto) Lymph # [place] # Eos # Baso # Seg Neutrophils % Seg Neutrophils # PT INR APTT VBG pH 7.320 Sodium Potassium Chloride Carbon Dioxide Anion Gap BUN Creatinine Estimated GFR BUN/Creatinine Ratio Glucose POC Glucose Ketones Quantitative Negative Lactic Acid 2.80 H* Calcium Magnesium Total Bilirubin 0.60 Direct Bilirubin < 0.2 AST 24 ALT 29 Alkaline Phosphatase 68 NT-Pro-B Natriuret Pep Total Protein 7.6 Albumin 4.0 Albumin/Globulin Ratio 1.1 Urine Color Urine Turbidity Urine pH Ur Specific [place] Urine Protein Urine Glucose (UA) Urine Ketones Urine Blood Urine Nitrite Urine Bilirubin Urine Urobilinogen Ur Leukocyte Esterase Urine WBC (Auto) Urine RBC (Auto) U Epithel Cells (Auto) Urine HCG, Qual 04/30/19 04/30/19 04/30/19 07:40 07:40 07:54 WBC RBC Hgb Hct MCV MCH MCHC RDW Plt Count Lymph % (Auto) [place] % (Auto) Eos % (Auto) Baso % (Auto) Lymph # [place] # Eos # Baso # Seg Neutrophils % Seg Neutrophils # PT INR APTT VBG pH Sodium Potassium Chloride Carbon Dioxide Anion Gap BUN Creatinine Estimated GFR BUN/Creatinine Ratio Glucose POC Glucose Ketones Quantitative Lactic Acid Calcium Magnesium 1.40 L Total Bilirubin Direct Bilirubin AST ALT Alkaline Phosphatase NT-Pro-B Natriuret Pep < 5 Total Protein Albumin Albumin/Globulin Ratio Urine Color Yellow Urine Turbidity Clear Urine pH 6.0 Ur Specific [place] 1.036 H Urine Protein <15 mg/dl Urine Glucose (UA) >=500 Urine Ketones Neg Urine Blood Neg Urine Nitrite Neg Urine Bilirubin Neg Urine Urobilinogen < 2.0 Ur Leukocyte Esterase Neg Urine WBC (Auto) < 1.0 Urine RBC (Auto) 1.0 U Epithel Cells (Auto) Urine HCG, Qual Critical care attestation.: If time is entered above; I have spent that time in minutes in the direct care of this critically ill patient, excluding procedure time. ED Disposition Clinical Impression: Left genital labial abscess Hyperglycemia due to type 2 diabetes mellitus Qualifiers: Diabetes mellitus supervisor long goods insulin use: without intermediate use Qualified Code(s): E11.65 - Type 2 diabetes mellitus with hyperglycemia Disposition: DC09 OP ADMIT IP TO THIS HOSP Is pt being admited?: Yes Does the pt Need Aspirin: Yes Time of Disposition: 12:06
[2019-04-30] MEDS ORDERED: HumuLIN R ONE (12:07)
[2019-04-30] MEDS: HumuLIN R SUB-Q SCH ×3 (12:08→21:41)
--- NOTE | 2019-04-30 15:14 | Consultation ---
History of Present Illness Consult date: 04/30/19 Reason for consult: other (abscess) Requesting physician: KALEB LI Chief complaint: labial pain - History of present illness History of present illness: 24yo F history of diabetes presents with a 2 day history of swelling and pain in the left labial region. She's never had anything like this before. She has tried hot compresses but they have not helped. Has been having chills. Unaware if she's had fevers. Denies any nausea or vomiting. There is no drainage from that area. She came to the ER due to the increasing pain. Past History Past Medical History: diabetes, hypertension Past Surgical History: No surgical history Social history: no significant social history Family history: no significant family history Medications and Allergies Allergies Allergy/AdvReac Type Severity Reaction Status Date / Time lisinopril Allergy Vomiting Verified 02/08/17 09:33 Home Medications Medication Instructions Recorded Confirmed Last Taken Type metFORMIN [Glucophage] 500 mg PO BID #60 tablet 06/09/15 04/30/19 Unknown Rx Labetalol [Labetalol 100mg TAB] 100 mg PO BID 04/30/19 04/30/19 Unknown History glipiZIDE XL [Glucotrol Xl] 10 mg PO QDAY 04/30/19 04/30/19 Unknown History Active Meds: Active Medications Acetaminophen (Tylenol) 650 mg PO Q4H PRN PRN Reason: Pain MILD(1-3)/Fever >100.5/[place] Acetaminophen/Hydrocodone Bitart ([place] 5/325) 2 each PO Q6H PRN PRN Reason: Pain, Moderate (4-6) Dextrose (D50w (25gm) Syringe) 50 ml IV PRN PRN PRN Reason: Hypoglycemia Enoxaparin Sodium (Lovenox) 40 mg SUB-Q QDAY TOMMIE Glipizide (Glucotrol Xl) 10 mg PO QDDIAB TOMMIE Sodium Chloride (Nacl 0.9% 1000 Ml) 1,000 mls @ 75 mls/hr IV DIRECT TOMMIE Piperacillin Sod/Tazobactam Sod (Zosyn/Ns 4.5gm/100ml) 4.5 gm in 100 mls @ 200 mls/hr IV Q8HR TOMMIE; Protocol Vancomycin HCl 2,000 mg/ (Sodium Chloride) 540 mls @ 250 mls/hr IV Q12H TOMMIE Insulin Human Regular (Humulin R) 0 units SUB-Q ACHS [facility]; Protocol Last Admin: 04/30/19 12:08 Dose: 6 units Documented by: Labetalol HCl (Normodyne) 100 mg PO BID TOMMIE Metformin HCl (Glucophage) 500 mg PO BIDDIAB [facility] Ondansetron HCl (Zofran) 4 mg IV Q8H PRN PRN Reason: Nausea And Vomiting Sodium Chloride (Sodium Chloride Flush Syringe 10 Ml) 10 ml IV BID [facility] Sodium Chloride (Sodium Chloride Flush Syringe 10 Ml) 10 ml IV PRN PRN PRN Reason: LINE FLUSH Stop: 05/15/19 10:14 Review of Systems - Constitutional chills, no fever, no chronic pain - Cardiovascular no chest pain, no shortness of breath - Gastrointestinal no nausea, no vomiting - Genitourinary Genitourinary: other (labial pain) - Integumentary boils Exam Vital Signs Temp Pulse Resp BP Pulse Ox 98.6 F 125 H 20 155/99 99 04/30/19 03:56 04/30/19 03:56 04/30/19 03:56 04/30/19 03:56 04/30/19 03:56 - General physical appearance Positive: no distress, no pain, obese - Eyes Positive: normal occular movement - Respiratory Positive: normal expansion, normal respiratory effort - Integumentary other (swelling, tenderness and mild erythema of left labia. +fluctuance. About 4x2cm) - Neurologic Neurologic: alert and oriented to time, place and person, motor strength and sensation are grossly intact - Psychiatric Psychiatric: appropriate mood/affect, intact judgment & insight, cooperative Results - Labs 04/30/19 04:18 04/30/19 04:18 Abnormal lab results 04/30/19 04/30/19 04/30/19 Range/Units 04:00 04:03 04:18 WBC 13.8 H (4.5-11.0) K/mm3 RBC 5.66 H (3.65-5.03) M/mm3 MCV 61 L (79-97) fl MCH 20 L (28-32) pg RDW 17.8 H (13.2-15.2) % Seg Neutrophils % 70.7 H (40.0-70.0) % Seg Neutrophils # 9.8 H (1.8-7.7) K/mm3 Sodium (137-145) mmol/L Chloride (98-107) mmol/L Creatinine (0.7-1.2) mg/dL Glucose (65-100) mg/dL POC Glucose 342 H (70-105) Hemoglobin A1c (4-6) % Lactic Acid (0.7-2.0) mmol/L Magnesium (1.7-2.3) mg/dL Ur Specific [place] 1.032 H (1.003-1.030) 04/30/19 04/30/19 04/30/19 Range/Units 04:18 04:18 07:40 WBC (4.5-11.0) K/mm3 RBC (3.65-5.03) M/mm3 MCV (79-97) fl MCH (28-32) pg RDW (13.2-15.2) % Seg Neutrophils % (40.0-70.0) % Seg Neutrophils # (1.8-7.7) K/mm3 Sodium 134 L (137-145) mmol/L Chloride 95.8 L (98-107) mmol/L Creatinine 0.6 L (0.7-1.2) mg/dL Glucose 399 H (65-100) mg/dL POC Glucose (70-105) Hemoglobin A1c 11.9 H (4-6) % Lactic Acid 2.80 H* (0.7-2.0) mmol/L Magnesium (1.7-2.3) mg/dL Ur Specific [place] (1.003-1.030) 04/30/19 04/30/19 04/30/19 Range/Units 07:40 07:54 11:58 WBC (4.5-11.0) K/mm3 RBC (3.65-5.03) M/mm3 MCV (79-97) fl MCH (28-32) pg RDW (13.2-15.2) % Seg Neutrophils % (40.0-70.0) % Seg Neutrophils # (1.8-7.7) K/mm3 Sodium (137-145) mmol/L Chloride (98-107) mmol/L Creatinine (0.7-1.2) mg/dL Glucose (65-100) mg/dL POC Glucose 313 H (70-105) Hemoglobin A1c (4-6) % Lactic Acid (0.7-2.0) mmol/L Magnesium 1.40 L (1.7-2.3) mg/dL Ur Specific [place] 1.036 H (1.003-1.030) Diabetes panel 04/30/19 04/30/19 04/30/19 Range/Units 04:18 04:18 07:40 Sodium 134 L (137-145) mmol/L Potassium 4.6 (3.6-5.0) mmol/L Chloride 95.8 L (98-107) mmol/L Carbon Dioxide 24 (22-30) mmol/L BUN 13 (7-17) mg/dL Creatinine 0.6 L (0.7-1.2) mg/dL Glucose 399 H (65-100) mg/dL Hemoglobin A1c 11.9 H (4-6) % Calcium 9.7 (8.4-10.2) mg/dL AST 24 (5-40) units/L ALT 29 (7-56) units/L Alkaline Phosphatase 68 (35-129) units/L Total Protein 7.6 (6.3-8.2) g/dL Albumin 4.0 (3.9-5) g/dL Calcium panel 04/30/19 04/30/19 Range/Units 04:18 07:40 Calcium 9.7 (8.4-10.2) mg/dL Albumin 4.0 (3.9-5) g/dL Pituitary panel 04/30/19 Range/Units 04:18 Sodium 134 L (137-145) mmol/L Potassium 4.6 (3.6-5.0) mmol/L Chloride 95.8 L (98-107) mmol/L Carbon Dioxide 24 (22-30) mmol/L BUN 13 (7-17) mg/dL Creatinine 0.6 L (0.7-1.2) mg/dL Glucose 399 H (65-100) mg/dL Calcium 9.7 (8.4-10.2) mg/dL Adrenal panel 04/30/19 04/30/19 Range/Units 04:18 07:40 Sodium 134 L (137-145) mmol/L Potassium 4.6 (3.6-5.0) mmol/L Chloride 95.8 L (98-107) mmol/L Carbon Dioxide 24 (22-30) mmol/L BUN 13 (7-17) mg/dL Creatinine 0.6 L (0.7-1.2) mg/dL Glucose 399 H (65-100) mg/dL Calcium 9.7 (8.4-10.2) mg/dL Total Bilirubin 0.60 (0.1-1.2) mg/dL AST 24 (5-40) units/L ALT 29 (7-56) units/L Alkaline Phosphatase 68 (35-129) units/L Total Protein 7.6 (6.3-8.2) g/dL Albumin 4.0 (3.9-5) g/dL Assessment and Plan - Patient Problems (1) Left genital labial abscess Current Visit: Yes Status: Acute Plan to address problem: Pt stable. Patient would benefit from drainage. Options given for bedside drainage versus OR. Patient elected bedside drainage. We'll bring consent back when ready to do procedure. time=30min
[2019-04-30] MEDS ORDERED: XYLOCAINE 2%/EPI 1:100,000 INFILTRATI ONE (16:14)
[2019-04-30] MEDS: ZOSYN/NS 4.5GM/100ML 4.5 GM/100 ML VIAL IV SCH (17:24)
[2019-04-30] MEDS: NACL 0.9% 1000 ML 1,000 ML IV SCH (17:24)
[2019-04-30] MEDS: GLUCOPHAGE PO SCH (17:26)
--- NOTE | 2019-04-30 17:41 | Procedure Note ---
Date of procedure: 04/30/19 Pre-op diagnosis: Left labial abscess Post-op diagnosis: same Procedure: I&D of left labial abscess Timeout called. Sterile prep done. Skin injected with 2% lido with epi. Vertical incision sharply made through the skin over point of maximum fluctuance. Immediate drainage of purulent material. Cultures obtained. Wound cavity probed with CTA. Cavity restricted to SubQ tissue. no tracks or other pockets. Rest of the tissue was just induration. wound cavity washed out and packed with 1" iodoform. Pt tolerated the procedure well. No complications. Dressing placed. Findings: small pocket of pus in the subQ tissue space. Implants: none Anesthesia: local Surgeon: JAZMIN GOTTI Estimated blood loss: minimal Pathology: list (cultures) Specimen disposition: to lab Condition: stable Disposition: floor
[2019-04-30] MEDS: NORCO 5/325 PO PRN (17:49)
[2019-04-30] MEDS: VANCOMYCIN 2,000 MG in NACL 0.9% 500 ML 500 ML IV SCH (20:34)
[2019-04-30] MEDS: NORMODYNE PO SCH (21:41)
[2019-04-30] MEDS: SODIUM CHLORIDE FLUSH SYRINGE 10 ML IV SCH (21:42)
[2019-05-01] MEDS: ZOSYN/NS 4.5GM/100ML 4.5 GM/100 ML VIAL IV SCH ×4 (00:13→22:39)
[2019-05-01] MEDS: NORCO 5/325 PO PRN ×2 (03:03→12:51)
[2019-05-01 07:29] LABS: Basophils # (Auto) 0.1 K/mm3 (0.0-0.1); Basophils % (Auto) 0.9 % (0.0-1.8); Eosinophils # (Auto) 0.4 K/mm3 (0.0-0.4); Eosinophils % (Auto) 4.5 % (0.0-4.3); Hematocrit 31.4 % (30.3-42.9); Hemoglobin 10.2 gm/dl (10.1-14.3); Lymphocytes % (Auto) 20.5 % (13.4-35.0); Mean Corpuscular HGB Conc 32 % (30-34); Monocytes # (Auto) 0.5 K/mm3 (0.0-0.8); Monocytes % (Auto) 5.1 % (0.0-7.3); Platelet Count 250 K/mm3 (140-440); Red Blood Count 5.12 M/mm3 (3.65-5.03); Red Cell Distribution Width 18.2 % (13.2-15.2)
[2019-05-01] MEDS: HumuLIN R SUB-Q SCH ×4 (07:30→22:00)
[2019-05-01 07:34] LABS: Mean Corpuscular Volume 62 fl (79-97)
[2019-05-01 07:53] LABS: BUN/Creatinine Ratio 15; Blood Urea Nitrogen 9 mg/dL (7-17); Calcium 8.4 mg/dL (8.4-10.2); Hemolysis Index 0
[2019-05-01] MEDS: GLUCOTROL XL PO SCH (08:00)
[2019-05-01] MEDS: VANCOMYCIN 2,000 MG in NACL 0.9% 500 ML 500 ML IV SCH ×2 (08:00→20:00)
[2019-05-01] MEDS: GLUCOPHAGE PO SCH ×2 (08:00→17:43)
[2019-05-01] MEDS: NACL 0.9% 1000 ML 1,000 ML IV SCH (09:45)
[2019-05-01] MEDS: NORMODYNE PO SCH ×2 (09:49→22:40)
[2019-05-01] MEDS: LOVENOX SUB-Q SCH (09:49)
[2019-05-01] MEDS: SODIUM CHLORIDE FLUSH SYRINGE 10 ML IV SCH ×2 (09:52→22:00)
--- NOTE | 2019-05-01 11:46 | Progress Note ---
Assessment and Plan Assessment and plan: Sepsis. Patient will be placed on the sepsis pathway and treated with IV antibiotics. Continue to monitor lactic acid levels. Follow-up blood cultures. Left genital Labial abscess. S/p I and D per surgery. Continue IV antibiotics of vancomycin and Zosyn. Diabetes mellitus. Accu-Cheks and sliding scale insulin. Hypertension. Continue labetalol. Disposition. Anticipate discharge in a.m. History Interval history: No new issues overnight. Hospitalist Physical - Constitutional Vitals: Temp Pulse Resp BP Pulse Ox 98.1 F 87 24 134/81 98 05/01/19 04:48 05/01/19 04:48 05/01/19 04:48 05/01/19 04:48 05/01/19 04:48 General appearance: Present: no acute distress, well-nourished - EENT Eyes: Present: PERRL, EOM intact ENT: hearing intact, clear oral mucosa, dentition normal - Neck Neck: Present: supple, normal ROM - Respiratory Respiratory effort: normal Respiratory: bilateral: CTA - Cardiovascular Rhythm: regular Heart Sounds: Present: S1 & S2. Absent: gallop, rub - Extremities Extremities: no ischemia, No edema, Full ROM - Abdominal General gastrointestinal: soft, non-tender, non-distended, normal bowel sounds - Integumentary Integumentary: Present: clear, warm, dry - Neurologic Neurologic: CNII-XII intact, moves all extremities Results - Labs CBC & Chem 7: 05/01/19 06:56 05/01/19 06:56 Labs: Laboratory Last Values WBC 9.8 K/mm3 (4.5-11.0) 05/01/19 06:56 RBC 5.12 M/mm3 (3.65-5.03) H 05/01/19 06:56 Hgb 10.2 gm/dl (10.1-14.3) 05/01/19 06:56 Hct 31.4 % (30.3-42.9) 05/01/19 06:56 MCV 62 fl (79-97) L 05/01/19 06:56 MCH 20 pg (28-32) L 05/01/19 06:56 MCHC 32 % (30-34) 05/01/19 06:56 RDW 18.2 % (13.2-15.2) H 05/01/19 06:56 Plt Count 250 K/mm3 (140-440) 05/01/19 06:56 Lymph % (Auto) 20.5 % (13.4-35.0) 05/01/19 06:56 [place] % (Auto) 5.1 % (0.0-7.3) 05/01/19 06:56 Eos % (Auto) 4.5 % (0.0-4.3) H 05/01/19 06:56 Baso % (Auto) 0.9 % (0.0-1.8) 05/01/19 06:56 Lymph # 2.0 K/mm3 (1.2-5.4) 05/01/19 06:56 [place] # 0.5 K/mm3 (0.0-0.8) 05/01/19 06:56 Eos # 0.4 K/mm3 (0.0-0.4) 05/01/19 06:56 Baso # 0.1 K/mm3 (0.0-0.1) 05/01/19 06:56 Seg Neutrophils % 69.0 % (40.0-70.0) 05/01/19 06:56 Seg Neutrophils # 6.8 K/mm3 (1.8-7.7) 05/01/19 06:56 PT 13.9 Sec. (12.2-14.9) 04/30/19 07:40 INR 1.01 (0.87-1.13) 04/30/19 07:40 APTT 24.2 Sec. (24.2-36.6) 04/30/19 07:40 VBG pH 7.320 (7.320-7.420) 04/30/19 07:40 Sodium 135 mmol/L (137-145) L 05/01/19 06:56 Potassium 4.6 mmol/L (3.6-5.0) 05/01/19 06:56 Chloride 99.7 mmol/L (98-107) 05/01/19 06:56 Carbon Dioxide 24 mmol/L (22-30) 05/01/19 06:56 16 mmol/L 05/01/19 06:56 BUN 9 mg/dL (7-17) 05/01/19 06:56 0.6 mg/dL (0.7-1.2) L 05/01/19 06:56 Estimated GFR > 60 ml/min 05/01/19 06:56 15 % 05/01/19 06:56 Glucose 315 mg/dL (65-100) H 05/01/19 06:56 POC Glucose 319 (70-105) H 05/01/19 11:20 11.9 % (4-6) H 04/30/19 04:18 Negative (Negative) 04/30/19 07:40 Lactic Acid 1.60 mmol/L (0.7-2.0) 04/30/19 10:57 Calcium 8.4 mg/dL (8.4-10.2) 05/01/19 06:56 Magnesium 1.40 mg/dL (1.7-2.3) L 04/30/19 07:40 0.60 mg/dL (0.1-1.2) 04/30/19 07:40 < 0.2 mg/dL (0-0.2) 04/30/19 07:40 AST 24 units/L (5-40) 04/30/19 07:40 ALT 29 units/L (7-56) 04/30/19 07:40 68 units/L (35-129) 04/30/19 07:40 NT-Pro-B Natriuret Pep < 5 pg/mL (0-450) 04/30/19 07:40 7.6 g/dL (6.3-8.2) 04/30/19 07:40 4.0 g/dL (3.9-5) 04/30/19 07:40 1.1 % 04/30/19 07:40 Yellow (Yellow) 04/30/19 07:54 Clear (Clear) 04/30/19 07:54 6.0 (5.0-7.0) 04/30/19 07:54 Ur Specific [place] 1.036 (1.003-1.030) H 04/30/19 07:54 <15 mg/dl mg/dL (Negative) 04/30/19 07:54 >=500 mg/dL (Negative) 04/30/19 07:54 Neg mg/dL (Negative) 04/30/19 07:54 Neg (Negative) 04/30/19 07:54 Neg (Negative) 04/30/19 07:54 Neg (Negative) 04/30/19 07:54 < 2.0 mg/dL (<2.0) 04/30/19 07:54 Ur Leukocyte Esterase Neg (Negative) 04/30/19 07:54 < 1.0 /HPF (0.0-6.0) 04/30/19 07:54 1.0 /HPF (0.0-6.0) 04/30/19 07:54 U Epithel Cells (Auto) 1.0 /HPF (0-13.0) 04/30/19 04:00 Urine HCG, Qual Negative (Negative) 04/30/19 04:00 Active Medications - Current Medications Current Medications: Generic Name Dose Route Start Last Admin Trade Name Freq PRN Reason Stop Dose Admin Acetaminophen 650 mg 04/30/19 10:15 Tylenol PO Q4H PRN Pain MILD(1-3)/Fever >100.5/[place] Acetaminophen/Hydrocodone Bitart 2 each 04/30/19 10:15 05/01/19 03:03 [place] 5/325 PO 2 each Q6H PRN Administration Pain, Moderate (4-6) Dextrose 50 ml 04/30/19 11:27 D50w (25gm) Syringe IV PRN PRN Hypoglycemia Enoxaparin Sodium 40 mg 05/01/19 10:00 05/01/19 09:49 Lovenox SUB-Q 40 mg QDAY TOMMIE Administration Glipizide 10 mg 05/01/19 08:00 05/01/19 08:00 Glucotrol Xl PO 10 mg QDDIAB TOMMIE Administration Sodium Chloride 1,000 mls @ 75 mls/hr 04/30/19 11:00 05/01/19 09:45 Nacl 0.9% 1000 Ml IV 75 mls/hr DIRECT TOMMIE Administration Piperacillin Sod/Tazobactam Sod 4.5 gm in 100 mls @ 200 mls/hr 04/30/19 14:00 05/01/19 00:13 Zosyn/Ns 4.5gm/100ml IV 200 mls/hr Q8HR TOMMIE Administration Protocol Vancomycin HCl 2,000 mg/ 540 mls @ 250 mls/hr 04/30/19 20:00 05/01/19 08:00 Sodium Chloride IV 250 mls/hr Q12H TOMMIE Administration Insulin Human Regular 0 units 04/30/19 11:30 05/01/19 07:30 Humulin R SUB-Q 4 units ACHS TOMMIE Administration Protocol Labetalol HCl 100 mg 04/30/19 22:00 05/01/19 09:49 Normodyne PO 100 mg BID TOMMIE Administration Metformin HCl 500 mg 04/30/19 17:00 05/01/19 08:00 Glucophage PO 500 mg BIDDIAB TOMMIE Administration Ondansetron HCl 4 mg 04/30/19 10:15 Zofran IV Q8H PRN Nausea And Vomiting Sodium Chloride 10 ml 04/30/19 22:00 05/01/19 09:52 Sodium Chloride Flush Syringe 10 Ml IV 10 ml BID TOMMIE Administration Sodium Chloride 10 ml 04/30/19 10:15 Sodium Chloride Flush Syringe 10 Ml IV 05/15/19 10:14 PRN PRN LINE FLUSH
--- NOTE | 2019-05-01 13:18 | Progress Note ---
Assessment and Plan - Patient Problems (1) Left genital labial abscess Current Visit: Yes Status: Acute Plan to address problem: Pt stable. s/p I&D of left labial abscess. - 04/30 - POD#1. Doing well. Rec: 1) begin change the dressing with 1" iodoform gauze BID. Teach patient to do dressing changes. 2) would treat with Abx for 1 week. Augmentin should be adequate 3) f/u in clinic in 1 week 4) ok to d/c from my standpoint 5) May shower. Please call with questions. Subjective Date of service: 05/01/19 Patient Reports: Positive: no new complaints, feels better Objective Vital Signs - 12hr 05/01/19 05/01/19 05/01/19 03:03 04:03 04:48 Temperature 98.1 F Pulse Rate 87 Respiratory 20 20 24 Rate Blood Pressure 134/81 O2 Sat by Pulse 98 Oximetry 05/01/19 11:44 Temperature 98.6 F Pulse Rate 97 H Respiratory 18 Rate Blood Pressure 144/94 O2 Sat by Pulse 100 Oximetry - General physical appearance no distress, no pain, other (ambulating in room) - Respiratory normal expansion, normal respiratory effort - Integumentary other (left labial swelling is about 1/2 of yesterday's size. much softer. No a ctive drainage. Packing in place. ) - Labs 05/01/19 06:56 05/01/19 06:56 Diabetes panel 05/01/19 Range/Units 06:56 Sodium 135 L (137-145) mmol/L Potassium 4.6 (3.6-5.0) mmol/L Chloride 99.7 (98-107) mmol/L Carbon Dioxide 24 (22-30) mmol/L BUN 9 (7-17) mg/dL Creatinine 0.6 L (0.7-1.2) mg/dL Glucose 315 H (65-100) mg/dL Calcium 8.4 (8.4-10.2) mg/dL Calcium panel 05/01/19 Range/Units 06:56 Calcium 8.4 (8.4-10.2) mg/dL Pituitary panel 05/01/19 Range/Units 06:56 Sodium 135 L (137-145) mmol/L Potassium 4.6 (3.6-5.0) mmol/L Chloride 99.7 (98-107) mmol/L Carbon Dioxide 24 (22-30) mmol/L BUN 9 (7-17) mg/dL Creatinine 0.6 L (0.7-1.2) mg/dL Glucose 315 H (65-100) mg/dL Calcium 8.4 (8.4-10.2) mg/dL Adrenal panel 05/01/19 Range/Units 06:56 Sodium 135 L (137-145) mmol/L Potassium 4.6 (3.6-5.0) mmol/L Chloride 99.7 (98-107) mmol/L Carbon Dioxide 24 (22-30) mmol/L BUN 9 (7-17) mg/dL Creatinine 0.6 L (0.7-1.2) mg/dL Glucose 315 H (65-100) mg/dL Calcium 8.4 (8.4-10.2) mg/dL
[2019-05-02] MEDS: NORCO 5/325 PO PRN ×2 (00:41→14:05)
[2019-05-02] MEDS: ZOSYN/NS 4.5GM/100ML 4.5 GM/100 ML VIAL IV SCH (06:00)
--- NOTE | 2019-05-02 08:55 | Discharge Summary ---
Providers - Providers Date of Admission: 04/30/19 10:16 Date of discharge: 05/02/19 Attending physician: KALEB LI 04/30/19 10:15 Consult to Physician [CONS] Routine Comment: Consulting Provider: JAZMIN GOTTI Physician Instructions: Reason For Exam: labial abscess Primary care physician: [facility], Hospitalization Reason for admission: genital abscess Condition: Stable Hospital course: 24yo F history of diabetes presents with a 2 day history of swelling and pain in the left labial region. She tried hot compresses but they did not helped. There was no drainage from that area. She came to the ER due to the increasing pain. Patient was admitted with a diagnosis of left genital labial abscess. Patient was treated with IV antibiotics. Surgery was consulted and performed I&D of left labial abscess. Patient is felt to have received maximal hospital benefit and will be discharged home. Patient should continue dressing changes and antibiotics 1 week. Dedicated discharge time 32 minutes. Disposition: - TO HOME OR SELFCARE Time spent for discharge: 32 - Discharge Diagnoses (1) Hyperglycemia due to type 2 diabetes mellitus Status: Acute Qualifiers: Diabetes mellitus termite treater insulin use: without termite treater use Qualified Code(s): E11.65 - Type 2 diabetes mellitus with hyperglycemia (2) Left genital labial abscess Status: Acute Core Measure Documentation - Palliative Care Palliative Care/ Comfort Measures: Not Applicable - Core Measures Any of the following diagnoses?: none Exam - Constitutional Vitals: Temp Pulse Resp BP Pulse Ox 98.6 F 100 H 18 129/79 99 05/02/19 05:39 05/02/19 05:39 05/02/19 05:39 05/02/19 05:39 05/02/19 05:39 General appearance: Present: no acute distress, obese - EENT Eyes: Present: PERRL ENT: hearing intact, clear oral mucosa - Neck Neck: Present: supple, normal ROM - Respiratory Respiratory effort: normal Respiratory: bilateral: CTA - Cardiovascular Heart Sounds: Present: S1 & S2. Absent: rub, click - Extremities Extremities: pulses symmetrical, No edema Peripheral Pulses: within normal limits - Abdominal General gastrointestinal: Present: soft, non-tender, non-distended, normal bowel sounds Female genitourinary: Present: normal - Integumentary Integumentary: Present: clear, warm, dry - Musculoskeletal Musculoskeletal: gait normal, strength equal bilaterally - Psychiatric Psychiatric: appropriate mood/affect, intact judgment & insight - Neurologic Neurologic: CNII-XII intact, moves all extremities Plan Activity: advance as tolerated Weight Bearing Status: Full Weight Bearing Diet: diabetic Wound: change dressing (change the dressing with 1" iodoform gauze BID. ), per your surgeon's advice Durable Medical Equipment Needed Upon Discharge: other (dressing supplies) Follow up with: PROVIDENCE FRANCOIS CASTREJON MD [Primary Care Provider] - 7 Days JAZMIN GOTTI MD [Staff Physician] - 7 Days Prescriptions: Amoxicillin/Potassium Clav [Augmentin 875-125 Tablet] 1 each PO BID #14 tablet HYDROcodone/APAP 5-325 [[place] 5-325 mg TAB] 2 each PO Q6H PRN #8 tablet PRN Reason: Pain, Moderate (4-6)
[2019-05-02] MEDS: HumuLIN R SUB-Q SCH ×2 (09:15→12:40)
[2019-05-02] MEDS: GLUCOPHAGE PO SCH (09:16)
[2019-05-02] MEDS: VANCOMYCIN 2,000 MG in NACL 0.9% 500 ML 500 ML IV SCH (09:17)
[2019-05-02] MEDS: GLUCOTROL XL PO SCH (09:17)
[2019-05-02] MEDS ORDERED: AUGMENTIN 875 MG PO SCH (10:00)
[2019-05-02] MEDS: NORMODYNE PO SCH (12:40)
[2019-05-02 12:41] VITALS: BP 149/93
[2019-05-02] MEDS: LOVENOX SUB-Q SCH (12:41)
[2019-05-02] MEDS: SODIUM CHLORIDE FLUSH SYRINGE 10 ML IV SCH (12:42)
== END 2019-05-02 16:30 | disposition home or self-care (01) | DRG 854 ==
LOC: ED 03:50 → 3A 10:16
PROVIDERS: ADMIT Hospitalist; ATTEND Hospitalist
PROC: 0U9M0ZZ Drainage of Vulva, Open Approach (ICD-10-PCS; principal; 2019-04-30)
DX: A41.9 Sepsis, unspecified organism (principal); N76.4 Abscess of vulva; Z68.43 Body mass index [BMI] 50.0-59.9, adult; E66.01 Morbid (severe) obesity due to excess calories; F03.90 Unspecified dementia, unspecified severity, without behavioral disturbance, psychotic disturbance, mood disturbance, and anxiety; J45.909 Unspecified asthma, uncomplicated; E11.9 Type 2 diabetes mellitus without complications; I10 Essential (primary) hypertension; Z88.6 Allergy status to analgesic agent; Z79.899 Other long term (current) drug therapy; Z79.84 Long term (current) use of oral hypoglycemic drugs; Z90.89 Acquired absence of other organs
CPT/HCPCS: 36415; 71045; 80048; 80076; 80202; 81001; 81025; 82010; 82140; 82805; 82962; 83036; 83735; 83880; 85025; 85610; 85730; 87040; 87086; 87116; 93005; 93010; 96365; 96366; 96367; 96375; G0378; J1650; J1815; J2405; J2543; J3370; J7030; J7040